=== PATIENT | female | born 1950 | race Asian ===

== ENCOUNTER 2022-09-19 14:26 | Inpatient (IN) | payer OTHER ==
[~2022-09-19] VITALS: Ht 147.3 cm; Wt 31.0 kg
[2022-09-19] MEDS ORDERED: MIRT-149 PO (15:01)
[2022-09-19] MEDS ORDERED: SIMV-259 PO (15:01)
[2022-09-19] MEDS ORDERED: FEBU40T PO (15:01)
[2022-09-19] MEDS ORDERED: DICY-1 PO (15:01)
[2022-09-19] MEDS ORDERED: PANT-31 PO (15:01)
[2022-09-19] MEDS ORDERED: COLC0.6C PO (15:01)
[2022-09-19] MEDS ORDERED: PROB500 PO (15:01)
[2022-09-19] MEDS ORDERED: NORT25 PO (15:01)
[2022-09-19] MEDS ORDERED: CLON0.2T PO (15:01)
[2022-09-19] MEDS ORDERED: AMLO-258 PO (15:01)
[2022-09-19] MEDS ORDERED: COLC0.6T73 PO (15:01)
[2022-09-19] MEDS ORDERED: POTA-206 PO (15:01)
[2022-09-19] MEDS ORDERED: FAMO20 PO (15:01)
[2022-09-19] MEDS ORDERED: LIPA1CAP18 PO (15:01)
[2022-09-19] MEDS ORDERED: ASPI-1444 PO (15:01)
[2022-09-19] MEDS ORDERED: LEVO150 PO (15:01)
[2022-09-19 15:27] LABS: COVID AG,FIA SOURCE NASAL SWAB
[2022-09-19 15:34] LABS: BASOPHILS % (AUTO) 0.7 % (0.0-2.0); EOSINOPHILS % (AUTO) 0.7 % (1.0-6.0); HEMATOCRIT 44.4 % (36-46); HEMOGLOBIN 14.9 g/dL (12.0-16.0); LYMPHOCYTES # (AUTO) 0.2 K/uL (1.0-4.8); LYMPHOCYTES % (AUTO) 18.6 % (22.0-44.0); MEAN CORPUSCULAR HEMOGLOBIN 31.6 pg (26.0-34.0); MEAN CORPUSCULAR HGB CONC 33.7 G/dL (31.0-37.0); MEAN CORPUSCULAR VOLUME 94 fL (80-100); MONOCYTES # (AUTO) 0.1 K/uL (0.1-1.0); MONOCYTES % (AUTO) 9.6 % (2.0-9.0); NEUTROPHILS # (AUTO) 0.8 K/uL (1.8-7.7); NEUTROPHILS % (AUTO) 70.4 % (40.0-70.0); PLATELET COUNT (AUTO) 148 K/uL (150-450); RED BLOOD CELL COUNT(AUTO) 4.73 MIL/uL (4.00-5.20); RED CELL DISTRIBUTION WIDTH 16.9 % (11.5-14.5)
[2022-09-19 15:44] LABS: INR 1.1 (0.9-1.1); PROTHROMBIN TIME 11.5 SEC (9.4-11.6)
[2022-09-19 15:46] LABS: INFLUENZA TYPE A NEGATIVE FOR TYPE A (NEGATIVE); INFLUENZA TYPE B NEGATIVE FOR TYPE B (NEGATIVE)
[2022-09-19 15:50] LABS: LACTIC ACID 4.4 mmol/L (0.4-2.0)
[2022-09-19 15:53] LABS: PLATELET MORPHOLOGY COMMENT LARGE PLTS PRESENT
[2022-09-19 15:58] LABS: ALBUMIN 3.5 g/dL (3.4-5.0); ALKALINE PHOSPHATASE 242 U/L (46-116); ASPARTATE AMINOTRANSFERASE 132 U/L (15-37); BILIRUBIN,TOTAL 0.5 mg/dL (0.1-1.0); TOTAL PROTEIN, SERUM 9.3 g/dL (6.4-8.2); UREA NITROGEN, BLOOD 72 mg/dL (7-18)
[2022-09-19] MEDS ORDERED: LOSA-382 PO (15:59)
[2022-09-19] MEDS ORDERED: ZOLP-280 PO (15:59)
[2022-09-19] MEDS ORDERED: CHOL25TA4 PO (15:59)
[2022-09-19] MEDS ORDERED: LACT10SO10 PO (15:59)
[2022-09-19] MEDS ORDERED: DICY20TA95 PO (15:59)
[2022-09-19] MEDS ORDERED: SODIUM CHLORIDE 0.9% 1,000 ML IV ONE ×2 (16:00→16:45)
[2022-09-19 16:02] LABS: B-TYPE NATRIURETIC PEPTIDE 363 pg/mL (0-100)
[2022-09-19 16:24] LABS: ALANINE AMINOTRANSFERASE 58 U/L (12-78); ANION GAP 20 mmol/L (8-16); CALCIUM, TOTAL 9.9 mg/dL (8.8-10.5); CARBON DIOXIDE 17 mmol/L (22-29); CHLORIDE 79 mmol/L (98-107); CREATININE 1.97 mg/dL (0.60-1.30); GLUCOSE,RANDOM 115 mg/dL (70-110); POTASSIUM 4.7 mmol/L (3.5-5.1)
[2022-09-19 16:28] LABS: GLOMERULAR FILTR. RATE CALC 25 mL/min (>60); SODIUM SERUM 116 mmol/L (136-145); THYROID STIMULATING HORMONE < 0.01 uIU/mL (0.36-3.74)
[2022-09-19 20:00] VITALS: BP 110/64
[2022-09-19] MEDS ORDERED: HYDROCODONE/ACETAMINOPHEN 5-325 MG TABLET PO PRN (21:00)
[2022-09-19] MEDS ORDERED: DOCUSATE SODIUM 100 MG CAPSULE PO SCH (21:00)
[2022-09-19] MEDS ORDERED: ACETAMINOPHEN 325 MG TABLET PO PRN (21:00)
[2022-09-19] MEDS ORDERED: ONDANSETRON HCL 4 MG/2 ML VIAL IVP PRN (21:00)
[2022-09-19] MEDS ORDERED: ZOLPIDEM TARTRATE 5 MG TABLET PO PRN (21:00)
[2022-09-19] MEDS ORDERED: MORPHINE SULFATE 2 MG/ML SYRINGE IVP PRN (21:00)
[2022-09-19] MEDS ORDERED: SODIUM CHLORIDE 0.9% 500 ML IV SCH (21:00)
[2022-09-19] MEDS ORDERED: MAGNESIUM HYDROXIDE SUSPENSION 30 ML UDCUP PO PRN (21:00)
[2022-09-19] MEDS ORDERED: BISACODYL 10 MG RECTAL RECTAL SUPPOSITORY PR PRN (21:00)
[2022-09-20] MEDS ORDERED: HEPARIN SODIUM,PORCINE 5,000 UNITS/ML VIAL SQ SCH
[2022-09-20] MEDS ORDERED: PANTOPRAZOLE SODIUM 40 MG DR TABLET PO SCH (09:00)
== END 2022-09-19 20:43 | DRG 682 ==
LOC: EMS 14:29 → ICU 17:47
PROVIDERS: ADMIT Internal Medicine; ATTEND Internal Medicine
PROC: 5A12012 Performance of Cardiac Output, Single, Manual (ICD-10-PCS; principal; 2022-09-19)
DX: N17.0 Acute kidney failure with tubular necrosis (principal); E43 Unspecified severe protein-calorie malnutrition; G93.41 Metabolic encephalopathy; E87.1 Hypo-osmolality and hyponatremia; E87.20 Acidosis, unspecified; Z68.1 Body mass index [BMI] 19.9 or less, adult; E86.0 Dehydration; D70.9 Neutropenia, unspecified; E03.9 Hypothyroidism, unspecified; E78.00 Pure hypercholesterolemia, unspecified; I10 Essential (primary) hypertension; I46.9 Cardiac arrest, cause unspecified; R19.7 Diarrhea, unspecified; Z20.822 Contact with and (suspected) exposure to COVID-19; Z79.899 Other long term (current) drug therapy; Z79.82 Long term (current) use of aspirin
CPT/HCPCS: 70450; 71045; 80053; 83605; 83880; 84295; 84443; 84484; 85025; 85610; 85730; 87081; 87804; 92950; 93005; 99291; G0378; 36415-L1; 36415-TC